=== PATIENT | female | born 1995 | race Two or more races ===

== ENCOUNTER 2019-10-09 16:04 | Outpatient (CLI) | payer OTHER | END 2019-10-09 16:11 | disposition home or self-care (01) | LOC: LAB 16:04 | PROVIDERS: ATTEND Emergency Medicine Pediatric Emergency Medicine | DX: Z20.828 Contact with and (suspected) exposure to other viral communicable diseases (principal) ==

== ENCOUNTER → 2019-11-10 | Emergency (ER) | payer OTHER ==
[~2019-11-10] VITALS: Ht 160 cm; Wt 65.8 kg
== END | disposition home or self-care (01) ==
LOC: ER 12:54
DX: S61.243A Puncture wound with foreign body of left middle finger without damage to nail, initial encounter (principal); W46.1XXA Contact with contaminated hypodermic needle, initial encounter; Y93.89 Activity, other specified; Y92.238 Other place in hospital as the place of occurrence of the external cause; Y99.8 Other external cause status

== ENCOUNTER 2020-11-26 08:00 | Outpatient (CLI) | payer OTHER | END 2020-11-26 08:15 | disposition home or self-care (01) | LOC: PPH VACUNA 08:00 | PROVIDERS: ATTEND Emergency Medicine Pediatric Emergency Medicine | DX: Z23 Encounter for immunization (principal) ==

== ENCOUNTER → 2020-11-26 | Outpatient (CLI) | payer OTHER | END | disposition home or self-care (01) | LOC: PPH VACUNA 08:00 | PROVIDERS: ATTEND Emergency Medicine Pediatric Emergency Medicine | DX: Z23 Encounter for immunization (principal) | CPT/HCPCS: G0008 ==